=== PATIENT | female | born 1980 | race Caucasian/White ===

== ENCOUNTER 2017-03-10 12:14 | Emergency (ER) | payer OTHER ==
[~2017-03-10] VITALS: Ht 162.6 cm; Wt 88.0 kg
[~2017-03-10 12:14] MED LIST: MOTRIN800 MG PO
[2017-03-10 13:02] LABS: HEMATOCRIT 32.5 % (36.0-46.0); MCH 30.8 PG (29.0-34.0); MCHC 34.5 G/DL (30.0-36.0); MCV 89.3 FL (83-99); MEAN PLAT.VOLUME 9.7 uM^3 (9.5-12.4); PLATELET COUNT 251 K/uL (156-360); RBC DIS.WIDTH-CV 12.5 % (11.8-14.6); RBC DIS.WIDTH-SD 40.8 % (39-53); RED BLOOD COUNT 3.64 M/uL (3.80-5.20); WHITE BLOOD COUNT 9.2 K/uL (4.1-10.2)
[2017-03-10] MEDS ORDERED: FLONASE16 G1 BOTH NARES (13:04)
[2017-03-10] MEDS ORDERED: ZYRTEC10 M2 PO (13:04)
[2017-03-10 13:15] LABS: CHLORIDE 105 mEq/L (99-109); POTASSIUM 3.8 mEq/L (3.7-5.4); SODIUM 138 mEq/L (136-147)
[2017-03-10 13:17] LABS: GLUCOSE 98 mg/dL (70-99)
[2017-03-10 13:18] LABS: ADD MIUA? YES; BILIRUBIN NEGATIVE; BLOOD LARGE; COLOR YELLOW ((YELLOW)); GLUCOSE (STRIP) NEGATIVE; KETONES NEGATIVE; LEUKOCYTES NEGATIVE; NITRITE NEGATIVE; PROTEIN (STRIP) NEGATIVE; SPECIFIC GRAVITY 1.013 (1.000-1.030); UROBILINOGEN 0.2 MG/DL (0.2-1.0)
[2017-03-10 13:18] LABS: ANION GAP 11 MEQ/L (2-14)
[2017-03-10 13:21] LABS: GFR ESTIMATE (CALCULATED) > 59 mL/min/; UREA NITROGEN (BUN) 9 mg/dL (9-23)
[2017-03-10 13:21] LABS: BACTERIA NONE SEEN /HPF; EPITHELIAL CELLS RARE /HPF; MUCUS TRACE /LPF; RED BLOOD CELLS 0-5 /HPF (0-5); UCUL ADDED? NO; WHITE BLOOD CELLS 0-5 /HPF (0-5)
[2017-03-10 13:28] LABS: QUANTITATIVE HCG 5417.8 MIU/ML
[2017-03-10] MEDS ORDERED: PERCOCET 5/31 TABLET PO (14:06)
[2017-03-10 14:23] VITALS: BP 123/72
== END 2017-03-10 14:36 | disposition home or self-care (01) ==
LOC: EME 12:14
DX: O03.9 Complete or unspecified spontaneous abortion without complication (principal); O09.521 Supervision of elderly multigravida, first trimester; Z3A.01 Less than 8 weeks gestation of pregnancy
CPT/HCPCS: 80048; 81003; 84702; 85027; 86900; 86901; 99281; 99284

== ENCOUNTER 2017-12-25 06:59 | Inpatient (IN) | payer OTHER ==
[2017-12-25] VITALS (15 sets, daily range): BP systolic 101–136; BP diastolic 57–78
[~2017-12-25] VITALS: Ht 162.6 cm; Wt 98.0 kg
[~2017-12-25 06:59] MED LIST changes: +FLONASE16 G1 BOTH NARES; +PERCOCET 5/31 TABLET PO; +ZYRTEC10 M2 PO
[2017-12-25] MEDS ORDERED: GLYBURIDE2.5 MG PO (07:39)
[2017-12-25] MEDS ORDERED: VENTOLIN HFA18 GM IH (07:40)
[2017-12-25 09:32] LABS: AMPHETAMINE NEGATIVE (500 ng/mL); BARBITURATES NEGATIVE (200 ng/mL); BENZODIAZEPINES NEGATIVE (150 ng/mL); BUPRENORPHINE NEGATIVE (10 ng/mL); COCAINE NEGATIVE (150 ng/mL); METHADONE NEGATIVE (200 ng/mL); METHAMPHETAMINE NEGATIVE (500 ng/mL); OPIATES (MORPHINE) NEGATIVE (100 ng/mL); OXYCODONE NEGATIVE (100 ng/mL); PHENCYCLIDINE NEGATIVE (25 ng/mL); PROPOXYPHENE NEGATIVE (300 ng/mL); THC CANNABINOIDS NEGATIVE (50 ng/mL); TRICYCLIC ANTIDEPRESSANTS NEGATIVE (300 ng/mL)
[2017-12-25 09:40] LABS: UR CREATININE CONCENTRATION 130.4 MG/DL
[2017-12-25 10:16] LABS: BASOPHIL (%) 0.3 % (0-1); EOSINOPHIL (%) 0.4 % (0-5); HEMATOCRIT 29.1 % (36.0-46.0); HEMOGLOBIN 9.2 G/DL (11.9-15.5); IMMATURE GRANULOCYTE (%) 0.6 % (0.0-0.7); LYMPHOCYTE (%) 14.1 % (15-42); LYMPHOCYTE COUNT 1.1 K/uL (1.0-2.8); MCH 26.7 PG (29.0-34.0); MCHC 31.6 G/DL (30.0-36.0); MCV 84.3 FL (83-99); MONOCYTE (%) 7.3 % (3-12); MONOCYTE COUNT 0.6 K/uL (0-0.8); NEUTROPHIL (%) 77.3 % (45-76); PLATELET COUNT 205 K/uL (156-360); RBC DIS.WIDTH-CV 16.3 % (11.8-14.6); RBC DIS.WIDTH-SD 49.9 % (39-53); RED BLOOD COUNT 3.45 M/uL (3.80-5.20); WHITE BLOOD COUNT 7.7 K/uL (4.1-10.2)
[2017-12-25 10:43] LABS: ALBUMIN 2.9 G/DL (3.2-4.8); ALKALINE PHOSPHATASE 101 IU/L (3-129); ALT (GPT) 8 IU/L (3-49); AST (GOT) 13 IU/L (2-34); CHLORIDE 106 MEQ/L (99-109); CREATININE 0.5 MG/DL (0.6-1.3); GFR ESTIMATE (CALCULATED) > 59 mL/min/; GLUCOSE 86 mg/dL (70-99); POTASSIUM 4.2 MEQ/L (3.7-5.4); SODIUM 137 MEQ/L (136-147); TOTAL BILIRUBIN 0.3 MG/DL (0.0-1.0); TOTAL PROTEIN 5.8 G/DL (6.4-8.3); UREA NITROGEN (BUN) 11 mg/dL (9-23)
[2017-12-25] MEDS ORDERED: MOTRIN800 MG PO (17:57)
[2017-12-26 15:02] VITALS: BP 143/65
== END 2017-12-26 21:00 | disposition home or self-care (01) | DRG 775 ==
LOC: LDRP-OP 06:59 → 2WEST 07:00 → LDRP-OP 10:52 → 2WEST 16:51
PROVIDERS: Nurse Practitioner; Obstetrics & Gynecology
PROC: 10E0XZZ Delivery of Products of Conception, External Approach (ICD-10-PCS; principal; 2017-12-25)
DX: O42.02 Full-term premature rupture of membranes, onset of labor within 24 hours of rupture (principal); Z3A.39 39 weeks gestation of pregnancy; Z37.0 Single live birth; O69.81X0 Labor and delivery complicated by cord around neck, without compression, not applicable or unspecified; O24.425 Gestational diabetes mellitus in childbirth, controlled by oral hypoglycemic drugs; O99.02 Anemia complicating childbirth; D50.9 Iron deficiency anemia, unspecified; O99.214 Obesity complicating childbirth; E66.9 Obesity, unspecified; Z68.31 Body mass index [BMI] 31.0-31.9, adult; O99.52 Diseases of the respiratory system complicating childbirth; J45.909 Unspecified asthma, uncomplicated
CPT/HCPCS: 80053; 82570; 82948; 84156; 85025; J7120

== ENCOUNTER 2018-01-11 12:44 | Emergency (ER) | payer OTHER ==
[~2018-01-11] VITALS: Ht 162.6 cm; Wt 89.1 kg
[~2018-01-11 12:44] MED LIST changes: +GLYBURIDE2.5 MG PO; +VENTOLIN HFA18 GM IH
[2018-01-11 13:43] LABS: HEMATOCRIT 34.4 % (36.0-46.0); HEMOGLOBIN 10.9 G/DL (11.9-15.5); MCH 26.1 PG (29.0-34.0); MCHC 31.7 G/DL (30.0-36.0); MCV 82.5 FL (83-99); PLATELET COUNT 206 K/uL (156-360); RBC DIS.WIDTH-CV 15.8 % (11.8-14.6); RBC DIS.WIDTH-SD 47.1 % (39-53); WHITE BLOOD COUNT 9.7 K/uL (4.1-10.2)
[2018-01-11 13:47] LABS: APPEARANCE CLEAR ((CLEAR)); BILIRUBIN NEGATIVE; BLOOD LARGE; COLOR YELLOW ((YELLOW)); GLUCOSE (STRIP) NEGATIVE; KETONES NEGATIVE; LEUKOCYTES NEGATIVE; NITRITE NEGATIVE; PROTEIN (STRIP) 30; SPECIFIC GRAVITY 1.029 (1.000-1.030); UROBILINOGEN 0.2 MG/DL (0.2-1.0)
[2018-01-11 13:48] LABS: RED BLOOD COUNT 4.17 M/uL (3.80-5.20)
[2018-01-11 13:51] LABS: ALBUMIN 3.8 g/dL (3.2-4.8); CHLORIDE 106 mEq/L (99-109); POTASSIUM 3.7 mEq/L (3.7-5.4); SODIUM 138 mEq/L (136-147)
[2018-01-11 13:53] LABS: BACTERIA NONE SEEN /HPF; EPITHELIAL CELLS RARE /HPF; MUCUS TRACE /LPF; RED BLOOD CELLS 40-50 /HPF (0-5); UCUL ADDED? NO; WHITE BLOOD CELLS 0-5 /HPF (0-5)
[2018-01-11 13:53] LABS: GLUCOSE 101 mg/dL (70-99)
[2018-01-11 13:54] LABS: TOTAL PROTEIN 6.6 g/dL (6.4-8.3)
[2018-01-11 13:55] LABS: TOTAL BILIRUBIN 0.6 mg/dL (0.0-1.0)
[2018-01-11 13:57] LABS: ALKALINE PHOSPHATASE 103 IU/L (3-129); CREATININE 0.8 mg/dL (0.6-1.3); GFR ESTIMATE (CALCULATED) > 59 mL/min/
[2018-01-11 13:58] LABS: UREA NITROGEN (BUN) 7 mg/dL (9-23)
[2018-01-11 13:59] LABS: AST (GOT) 28 IU/L (2-34)
[2018-01-11 14:00] LABS: ALT (GPT) 43 IU/L (3-49); LIPASE 16 U/L (1.0-51.0)
[2018-01-11 16:39] VITALS: BP 122/68
== END 2018-01-11 16:41 | disposition home or self-care (01) ==
LOC: EME 12:44
DX: N20.0 Calculus of kidney (principal); J06.9 Acute upper respiratory infection, unspecified; Z87.442 Personal history of urinary calculi; F41.9 Anxiety disorder, unspecified; J45.909 Unspecified asthma, uncomplicated
CPT/HCPCS: 71046; 74176; 80053; 81003; 83690; 85027; 99281; 99285